=== PATIENT | male | born 1975 | race Caucasian/White ===

== ENCOUNTER 2018-03-15 11:07 | Emergency (ER) | payer OTHER ==
[~2018-03-15 11:07] MED LIST: CYCL-331 PO; HYDR-2155 PO; IBUP800T19 PO
[2018-03-15 11:15] VITALS: BP 147/82
--- NOTE | 2018-03-15 11:29 | PHYS DOC ---
Past History Past Medical History: Hypothyroid, Other Past Surgical History: Other Alcohol Use: None Drug Use: None Adult General Chief Complaint Chief Complaint: LOWER EXT PAIN HPI HPI 42-year-old male presents with right posterior upper leg pain. 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 There was an incident where he took off running and while running felt a popping sensation in his posterior right leg. He is still able to walk but if he tries to do a squat or push off to begin running he gets pain in the posterior lateral side. He is concern for a torn hamstring. He denies any other injuries or complaints. Review of Systems Review of Systems Constitutional: Denies fever or chills [] Eyes: Denies change in visual acuity, redness, or eye pain [] HENT: Denies nasal congestion or sore throat [] Respiratory: Denies cough or shortness of breath [] Cardiovascular: No additional information not addressed in HPI [] GI: Denies abdominal pain, nausea, vomiting, bloody stools or diarrhea [] : Denies dysuria or hematuria [] Musculoskeletal: Right upper leg pain[] Integument: Denies rash or skin lesions [] Neurologic: Denies headache, focal weakness or sensory changes [] Endocrine: Denies polyuria or polydipsia [] All other systems were reviewed and found to be within normal limits, except as documented in this note. Allergies Allergies Allergies Coded Allergies Type Severity Reaction Last Updated Verified No Known Drug Allergies 04/09/14 No Physical Exam Physical Exam Constitutional: Well developed, well nourished, no acute distress, non-toxic appearance. [] HENT: Normocephalic, atraumatic, bilateral external ears normal, oropharynx moist, no oral exudates, nose normal. [] Eyes: PERRLA, EOMI, conjunctiva normal, no discharge. [] Neck: Normal range of motion, no tenderness, supple, no stridor. [] Cardiovascular:Heart rate regular rhythm, no murmur [] Lungs & Thorax: Bilateral breath sounds clear to auscultation [] Abdomen: Bowel sounds normal, soft, no tenderness, no masses, no pulsatile masses. [] Skin: Warm, dry, no erythema, no rash. [] Back: No tenderness, no CVA tenderness. [] Extremities: Tenderness over the right bicep femoris distribution. Tendons are still intact. There is muscle spasm of this muscle. [] Neurologic: Alert and oriented X 3, normal motor function, normal sensory function, no focal deficits noted. [] Psychologic: Affect normal, judgement normal, mood normal. [] Current Patient Data Vital Signs Vital Signs Date Time Temp Pulse Resp B/P (MAP) Pulse Ox O2 Delivery O2 Flow Rate FiO2 03/15/18 11:15 98.1 94 20 94 Room Air EKG EKG [] Radiology/Procedures Radiology/Procedures [] Course & Med Decision Making Course & Med Decision Making Pertinent Labs and Imaging studies reviewed. (See chart for details) The patient appears to have a strain of his right hamstring, specifically the bicep femoris. The patient's pain is manageable. I have recommended a take nurse the day off and see how things go tomorrow. He will do some light stretching at home, rest, ice, and take ibuprofen. He is stable for discharge at this time. [] Dragon Disclaimer Dragon Disclaimer This electronic medical record was generated, in whole or in part, using a voice recognition dictation system. Departure Departure: Impression: Primary Impression: Right hamstring muscle strain Disposition: HOME, SELF-CARE Condition: STABLE Referrals: SHAHEED VALENTINO (PCP) Patient Instructions: Hamstring Strain with Rehab-SportsMed Problem Qualifiers Primary Impression: Right hamstring muscle strain Encounter type: initial encounter Qualified Codes: S76.311A - Strain of muscle, fascia and tendon of the posterior muscle group at thigh level, right thigh, initial encounter EVER ANDERSON DO Mar 15, 2018 11:29
== END 2018-03-15 11:35 | disposition home or self-care (01) ==
LOC: ER 11:07
DX: S86.811A Strain of other muscle(s) and tendon(s) at lower leg level, right leg, initial encounter (principal); E03.9 Hypothyroidism, unspecified; X50.9XXA Other and unspecified overexertion or strenuous movements or postures, initial encounter; X50.3XXA Overexertion from repetitive movements, initial encounter; Y93.02 Activity, running; Y92.148 Other place in prison as the place of occurrence of the external cause; Y99.0 Civilian activity done for income or pay
CPT/HCPCS: 99281

== ENCOUNTER 2019-05-17 19:11 | Emergency (ER) | payer OTHER ==
[~2019-05-17] VITALS: Ht 180.3 cm; Wt 143.7 kg
--- NOTE | 2019-05-17 19:18 | PHYS DOC ---
Past History Past Medical History: Hypothyroid, Other Past Surgical History: Other Alcohol Use: None Drug Use: None Adult General Chief Complaint Chief Complaint: BACK PAIN OR INJURY... " I was running on an alarm. .. at [facility]... and emanuel slipped.... felt something tear in my Lt. hip and leg... and lower back.. it not like muscle pull .. worse.. 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 Patient localizes pain in left gluteal area and radiates down left leg. Patient is ambulatory. Distal neurovascular is equal to right leg. No midline tenderness to lower spine. No history of fever. No history immunosuppression. No history of cancer. Pain is exacerbated by by straight leg lift. Review of Systems Review of Systems Constitutional: Denies fever or chills [] Eyes: Denies change in visual acuity, redness, or eye pain [] HENT: Denies nasal congestion or sore throat [] Respiratory: Denies cough or shortness of breath [] Cardiovascular: No additional information not addressed in HPI [] GI: Denies abdominal pain, nausea, vomiting, bloody stools or diarrhea [] : Denies dysuria or hematuria [] Musculoskeletal: Complains of left hip and leg pain. Integument: Denies rash or skin lesions [] Neurologic: Denies headache, focal weakness or sensory changes [] Endocrine: Denies polyuria or polydipsia [] All other systems were reviewed and found to be within normal limits, except as documented in this note. Family History Family History Noncontributory to presentation Current Medications Current Medications See nursing for home meds Allergies Allergies Allergies Coded Allergies Type Severity Reaction Last Updated Verified No Known Drug Allergies 04/09/14 No Physical Exam Physical Exam Constitutional: Well developed, well nourished, moderate acute distress, non- toxic appearance. [] HENT: Normocephalic, atraumatic, bilateral external ears normal, oropharynx moist, no oral exudates, nose normal. [] Eyes: PERRLA, EOMI, conjunctiva normal, no discharge. [] Neck: Normal range of motion, no tenderness, supple, no stridor. [] Cardiovascular:Heart rate regular rhythm, no murmur [] Lungs & Thorax: Bilateral breath sounds clear to auscultation [] Abdomen: Bowel sounds normal, soft, no tenderness, no masses, no pulsatile masses. [] Skin: Warm, dry, no erythema, no rash. [] Back: No tenderness, no CVA tenderness. [] Extremities: F tip and leg tenderness, no cyanosis, no clubbing, ROM intact, no edema. [] Neurologic: Alert and oriented X 3, normal motor function, normal sensory function, no focal deficits noted. []DTRs +2 patella. Psychologic: Affect anxious, judgement normal, mood normal. [] EKG EKG [] Radiology/Procedures Radiology/Procedures [][address] [address] IMAGING REPORT Signed PATIENT: MARIA IRVIN ACCOUNT: [id number] : 1975 LOCATION: ER AGE: 44 SEX: M EXAM STATUS: REG ER ORD. PHYSICIAN: DANILO SEARS MD REASON: injury runnng to alarm - [facility] PROCEDURE: CT LUMBAR SPINE WO CONTRAST Exam: CT the lumbar spine without contrast INDICATION: Injury running TECHNIQUE: Sequential axial images through the lumbar spine obtained without IV contrast. Sagittal and coronal reformatted images were reconstructed from the axial data and reviewed. Comparisons: None FINDINGS: Vertebral body heights and alignment are well-maintained. Fracture through the lumbar spine is not identified. Degenerative disc disease greatest at L4-L5 without significant neural foraminal or spinal canal stenosis. Nonobstructing 2 mm calculus at the lower pole of the right kidney. IMPRESSION: Negative CT lumbar spine for acute traumatic injury. Exposure: One or more of the following in the visualized dose reduction techniques were utilized for this examination: 1. Automated exposure control 2. Adjustment of the MA and/or KV according to patient size 3. Use of iterative of reconstructive technique Electronically signed by: Pacheco Malagon MD (05/17/2019 8:26 PM) [id number] DICTATED AND SIGNED BY: PACHECO MALAGON MD DATE: 05/17/192025 CC: DOMENIC REICH; DANILO SEARS MD ~ [address] [place] [id number] IMAGING REPORT Signed PATIENT: MARIA IRVIN ACCOUNT: [id number] : 1975 LOCATION: ER AGE: 44 SEX: M EXAM STATUS: REG ER ORD. 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 FINDINGS: No fracture or dislocation of the femur. Both the frontal and lateral views of the upper femur at the hip there is cortical irregularity with 2 mm of step off of the quadrilateral plate of the pelvis raising the possibility of an age-indeterminate fracture deformity, although no lucent fracture is present to confirm an acute fracture which may indicate this is a chronic deformity. Soft tissues unremarkable. Chronic ossicle tibial tubercle lateral view of the knee. IMPRESSION: No acute osseous injury of the left femur. Cortical irregularity of the quadrilateral plate of the left pelvis could indicate a traumatic abnormality of indeterminate age. Based on the level of clinical suspicion for acute bony injury of the pelvis this could be further assessed with CT imaging. Electronically signed by: Jerardo Chauhan MD (05/17/2019 8:29 PM) [id number] DICTATED AND SIGNED BY: JERARDO CHAUHAN MD DATE: 05/17/192028 CC: DOMENIC REICH; DANILO SEARS MD ~ Course & Med Decision Making Course & Med Decision Making Pertinent Labs and Imaging studies reviewed. (See chart for details) Patient use ice packs as needed. Rest. Take Tylenol and ibuprofen for pain. For marked pain may take Vicoprofen up to 4 times a day. Follow-up workmen's comp. Follow-up primary care. Return if any concerns. Impression: 1. Muscle Sprain / Strain 2. Back Pain / Sciatica Lt [] Dragon Disclaimer Dragon Disclaimer This electronic medical record was generated, in whole or in part, using a voice recognition dictation system. Departure Departure: Disposition: 01 HOME/RESIDENCE PRIOR TO ADM Condition: STABLE Referrals: DOMENIC REICH (PCP) Scripts Hydrocodone/Ibuprofen (HYDROCODONE-IBUPROFEN 7.5-200 ) 1 Each Tablet 1 TAB PO PRN Q6HRS PRN for PAIN, #30 TAB 0 Refills Prov: DANILO SEARS MD 05/17/19 David Disclaimer This chart was dictated in whole or in part using Voice Recognition software in a busy, high-work load, and often noisy Emergency Department environment. It may contain unintended and wholly unrecognized errors or omissions. DANILO SEARS MD May 17, 2019 19:18
[2019-05-17] MEDS ORDERED: KETOROLAC 60 MG/2 ML VIAL. IM ONE (19:45)
[2019-05-17] MEDS ORDERED: HYDR-1179 PO (19:50)
[2019-05-17 20:20] VITALS: BP 136/77
--- NOTE | 2019-05-17 20:29 | RAD ---
Exam: CT the lumbar spine without contrast INDICATION: Injury running TECHNIQUE: Sequential axial images through the lumbar spine obtained without IV contrast. Sagittal and coronal reformatted images were reconstructed from the axial data and reviewed. Comparisons: None FINDINGS: Vertebral body heights and alignment are well-maintained. Fracture through the lumbar spine is not identified. Degenerative disc disease greatest at L4-L5 without significant neural foraminal or spinal canal stenosis. Nonobstructing 2 mm calculus at the lower pole of the right kidney. IMPRESSION: Negative CT lumbar spine for acute traumatic injury. Exposure: One or more of the following in the visualized dose reduction techniques were utilized for this examination: 1. Automated exposure control 2. Adjustment of the MA and/or KV according to patient size 3. Use of iterative of reconstructive technique Electronically signed by: Pacheco Hale MD (05/17/2019 8:26 PM) [id number]
--- NOTE | 2019-05-17 20:32 | RAD ---
Left femur AP lateral x-rays HISTORY: Fall and injury. FINDINGS: No fracture or dislocation of the femur. Both the frontal and lateral views of the upper femur at the hip there is cortical irregularity with 2 mm of step off of the quadrilateral plate of the pelvis raising the possibility of an age-indeterminate fracture deformity, although no lucent fracture is present to confirm an acute fracture which may indicate this is a chronic deformity. Soft tissues unremarkable. Chronic ossicle tibial tubercle lateral view of the knee. IMPRESSION: No acute osseous injury of the left femur. Cortical irregularity of the quadrilateral plate of the left pelvis could indicate a traumatic abnormality of indeterminate age. Based on the level of clinical suspicion for acute bony injury of the pelvis this could be further assessed with CT imaging. Electronically signed by: Mahesh Chery MD (05/17/2019 8:29 PM) [id number]
--- NOTE | 2019-05-17 21:20 | RAD ---
Exam: CT pelvis without contrast INDICATION: Fall, running TECHNIQUE: Sequential axial images through the pelvis obtained without IV contrast. Sagittal and coronal reformatted images were reconstructed from the axial data and reviewed. Comparisons: None FINDINGS: Visualized intrapelvic structures are unremarkable. Small bilateral fat-containing inguinal hernias. Bone mineralization is normal. No acute or healed fractures. Pubic symphysis, hip joints and sacroiliac joints are well-maintained. Visualized portions of the lower extremity soft tissues are unremarkable. IMPRESSION: No acute traumatic injury identified at the pelvis. Exposure: One or more of the following in the visualized dose reduction techniques were utilized for this examination: 1. Automated exposure control 2. Adjustment of the MA and/or KV according to patient size 3. Use of iterative of reconstructive technique Electronically signed by: Pacheco Hale MD (05/17/2019 9:17 PM) [id number]
== END 2019-05-17 21:32 | disposition home or self-care (01) ==
LOC: ER 19:11
DX: M25.552 Pain in left hip (principal); M79.605 Pain in left leg; M54.5 Low back pain; G89.11 Acute pain due to trauma; E03.9 Hypothyroidism, unspecified; W01.0XXA Fall on same level from slipping, tripping and stumbling without subsequent striking against object, initial encounter; Y93.02 Activity, running; Y92.148 Other place in prison as the place of occurrence of the external cause; Y99.0 Civilian activity done for income or pay
CPT/HCPCS: 72131; 72192; 73552; 96372; 99285; J1885